=== PATIENT | female | born 1955 | race Caucasian/White ===

== ENCOUNTER 2022-11-04 07:32 | Observation (INO) ==
--- NOTE | 2022-09-28 15:36 | PAT Medication Instructions ---
Medication Instructions Date of Service September 28, 2022 Home Medications albuterol sulfate 90 mcg/actuation breath activated powder inhaler,sensor (Proair Digihaler) 2 inh inhalation Q4H PRN Shortness Of Breath budesonide 32 mcg/actuation nasal spray 1 spray intranasal DAILY PRN Nasal Congestion 23] clindamycin phosphate 1 % topical swab (Clindacin P) 1 applic topical HS fluticasone propionate 110 mcg/actuation HFA aerosol inhaler (Flovent HFA) 2 puff inhalation HS meloxicam 15 mg tablet 15 mg PO DAILY PRN Pain multivitamin 1 tab PO QDL omega-3 fatty acids [Fish Oil Concentrate] 1 tab PO DAILY turmeric root extract 500 mg capsule 500 mg PO QDL loratadine 10 mg tablet (Claritin) 10 mg PO DAILY PRN Allergy Symptoms cholecalciferol (vitamin D3) 25 mcg (1,000 unit) tablet (Vitamin D3) 25 mcg PO QDL glucosamine sulfate 2KCl 500 mg-msm 166.6 mg-chondroitin 400 mg tablet 1 tab PO QDL ASK your surgeon for instructions meloxicam 15 mg tablet 15 mg PO DAILY PRN Pain STOP taking 2 weeks before surgery omega-3 fatty acids [Fish Oil Concentrate] 1 tab PO DAILY turmeric root extract 500 mg capsule 500 mg PO QDL glucosamine sulfate 2KCl 500 mg-msm 166.6 mg-chondroitin 400 mg tablet 1 tab PO QDL STOP taking 24 hours before surgery clindamycin phosphate 1 % topical swab (Clindacin P) 1 applic topical HS DO NOT take the morning of surgery multivitamin 1 tab PO QDL loratadine 10 mg tablet (Claritin) 10 mg PO DAILY PRN Allergy Symptoms cholecalciferol (vitamin D3) 25 mcg (1,000 unit) tablet (Vitamin D3) 25 mcg PO QDL Take morning of surgery With a small sip of water, OTHERWISE NOTHING TO EAT OR DRINK AFTER MIDNIGHT: albuterol sulfate 90 mcg/actuation breath activated powder inhaler,sensor (Proair Digihaler) 2 inh inhalation Q4H PRN Shortness Of Breath (use if needed; please bring with you to hospital day of surgery if possible) budesonide 32 mcg/actuation nasal spray 1 spray intranasal DAILY PRN Nasal Congestion (if needed) Take evening before surgery fluticasone propionate 110 mcg/actuation HFA aerosol inhaler (Flovent HFA) 2 puff inhalation HS loratadine 10 mg tablet (Claritin) 10 mg PO DAILY PRN Allergy Symptoms (if needed) budesonide 32 mcg/actuation nasal spray 1 spray intranasal DAILY PRN Nasal Congestion (if needed) Other Notes If you have any questions please call us at [phone] or [phone] or [phone] or [phone]
--- NOTE | 2022-10-12 10:42 | Anesthesiology Consultation ---
Date of Service October 12, 2022 Assessment & Plan (1) Encounter for pre-operative examination: - left arm restriction. - Outpatient joint assessment: Patient is currently scheduled for inpatient pathway. If re-evaluated and patient/surgeon requests outpatient pathway, patient is acceptable candidate for outpatient joint program from anesthesia standpoint pending surgeon's office assessment of pt motivation/support/completion of same day joint program preop requirements. Chart Review Chart Review: Acceptable Risk for Surgery and Patient seen in Pre Admission Testing Teaching & Discussion Pre-Anesthesia Teaching/Discussion Notes: Instructed NPO after midnight before surgery, except medications with 15 cc of water. Medication instructions provided according to the PAT guidelines. History Surgery Operation Date: 11/04/22 10:40 Proposed Procedures p Right Total Knee Arthroplasty - Daniel Alberto, Height/Weight Height: 5 ft 4 in Weight: 89 kg Allergies Allergy/AdvReac Type Severity Reaction Status Date / Time COVID-19 (SARS-CoV-2) Allergy Severe anaphylaxis: Verified 10/12/22 10:35 vaccine, lorraine mouth/lip/throat swelling naproxen Allergy Severe throat Verified 10/12/22 10:43 swelling thimerosal Allergy Severe "caused Verified 09/28/22 14:22 holes in eye" nickel Allergy Intermediate severe rash Verified 09/28/22 14:35 latex Allergy Mild RASH Verified 09/28/22 14:19 Penicillins Allergy Mild HIVES Verified 09/28/22 14:19 Medications Home Medications Medication Instructions Recorded Confirmed Last Taken albuterol sulfate 90 mcg/actuation 2 inh inhalation Q4H PRN Shortness 07/14/20 09/28/22 Unknown breath activated powder Of Breath inhaler,sensor (Proair Digihaler) budesonide 32 mcg/actuation nasal 1 spray intranasal DAILY PRN Nasal 07/14/20 09/28/22 Unknown spray Congestion clindamycin phosphate 1 % topical 1 applic topical HS 07/14/20 09/28/22 Unknown swab (Clindacin P) fluticasone propionate 110 2 puff inhalation HS 07/14/20 09/28/22 Unknown mcg/actuation HFA aerosol inhaler (Flovent HFA) meloxicam 15 mg tablet 15 mg PO DAILY PRN Pain 07/14/20 09/28/22 Unknown multivitamin 1 tab PO QDL 07/14/20 09/28/22 Unknown omega-3 fatty acids [Fish Oil 1 tab PO DAILY 07/14/20 09/28/22 Unknown Concentrate] turmeric root extract 500 mg 500 mg PO QDL 07/14/20 09/28/22 Unknown capsule loratadine 10 mg tablet (Claritin) 10 mg PO DAILY PRN Allergy Symptoms 07/24/20 09/28/22 Unknown cholecalciferol (vitamin D3) 25 25 mcg PO QDL 09/28/22 09/28/22 Unknown mcg (1,000 unit) tablet (Vitamin D3) glucosamine sulfate 2KCl 500 1 tab PO QDL 09/28/22 09/28/22 Unknown mg-msm 166.6 mg-chondroitin 400 mg tablet ibuprofen 200 mg tablet 200 mg PO Q6H PRN Pain 10/12/22 10/12/22 Unknown Additional Notes: Pt was instructed to contact surgeon's office regarding ibuprofen, she verbalized understanding and agreement, denied questions, concerns or additional medications/supplements. Past Medical History Medical History (Updated 10/12/22 @ 10:40 by Caityln Higgins PA-C) Asthma inhaler daily/prn-last rescue inhaler use 7 months ago GERD (gastroesophageal reflux disease) rare, stable per pt History of breast cancer 2000--left--left mastectomy/chemo/aromatase x 5 yrs--left arm History of COVID-19 02/2022--mild symptoms, no symptoms now Limb alert care status left arm Patient denies h/o stroke, seizures, heart attack, heart failure, DM, HTN, blood clots or blood transfusions. Exercise / Class Metabolic Activity II 4-5 Yardwork/Stairs/Walk up hill (denies shortness of breath or chest discomfort with 1 FOS) Past Family History Family History (Updated 09/28/22 @ 14:38 by Angelic Heredia RN) Mother Alzheimer disease Breast cancer Grandmother (Maternal) Alzheimer disease Father Parkinson disease Stroke Brother Schizophrenia Other No family history of adverse response to anesthesia Past Surgical History Surgical History (Updated 09/28/22 @ 14:37 by Angelic Heredia RN) H/O mastectomy left mastectomy with lymph node removal History of bilateral cataract extraction History of colonoscopy History of dilatation and curettage x2 History of left breast biopsy malignant History of oophorectomy bilateral History of right breast biopsy benign Past Anesthesia History No Hx of Anesthesia Complications and No Family Hx of Anesthesia Complications History of PONV No Hx of PONV and No Hx of Motion Sickness Social History Smoking Status: Never smoker Do You Dip or Chew Tobacco: No Hx Alcohol Use: Yes alcohol intake frequency: holidays/special occasions only Hx Substance Use: No substance use type: does not use Review of Systems Occasional snoring, denies witnessed apneas. Patient denies chest pain, shortness of breath, dyspnea on exertion, fever, chills, cough, wheezing, or palpitations. Physical Exam Vital Signs Vitals BP 124/87 P 80 TEMP 98.2 SP02 96% on RA RESP 18 Physical Patient resting comfortably in chair in NAD, alert and oriented, responding appropriately throughout visit Full cervical extension range of motion without pain TMD 3.5 finger breadths Mallampati Score 3 Dentition: multiple crowns, denies chipped or loose teeth, caps, implants or bridges Lungs: normal respiratory effort. Good air movement, clear throughout to auscultation, no adventitious breath sounds Cardiac: regular rate and rhythm, no murmurs noted Carotid arteries: negative bruit bilat Lab Results Anesthesia Preop Results Results Anesthesia Widget: WBC 7.70 K/ul (4.8-10.8) 10/12/22 Hgb 13.9 g/dl (12.0-16.0) 10/12/22 Hct 40.6 % (37.0-47.0) 10/12/22 Plt 268 K/uL (130-400) 10/12/22 Na 137 mmol/L (136-145) 10/12/22 K 4.1 mmol/L (3.5-5.1) 10/12/22 Cl 106 mmol/L (98-107) 10/12/22 CO2 24 mmol/L (21-32) 10/12/22 BUN 21 mg/dl (6-23) 10/12/22 Creat 0.64 mg/dl (0.6-1.2) 10/12/22 Glucose Level 88 mg/dl (70-99(Fasting)) 10/12/22 PT 10.9 Seconds (9.0-12.0) 10/12/22 PTT 26.2 Seconds (21.0-31.0) 10/12/22 INR 1.0 (0.9-1.1) 10/12/22 Blood Type A Positive 10/12/22 Antibody Screen NEGATIVE 10/12/22 Testing Electrocardiogram Date: 10/12/22 NSR, rate 67 bpm Chest X-Ray Date: 10/12/22 No acute process
--- NOTE | 2022-11-03 06:57 | History & Physical Report ---
Date of Service November 03, 2022 Assessment & Plan (1) Osteoarthritis of right knee: We will proceed with a right total knee arthroplasty. Postoperatively she will be started on aspirin for DVT prophylaxis and kept overnight in the hospital for postop medical management. She plans to use energy physical therapy upon discharge. History of Present Illness Chief Complaint: Osteoarthritis of the right knee. Primary Care Provider: Angélica Johnston MD Zee is a pleasant 67-year-old female, who has been dealing with chronic increasing right knee pain. She has seen several orthopedic doctors over the past year or so. She has had multiple injections of her knee. She has done some therapy. All of her pain is located medially. It is to the point where she cannot go walking with her anymore. X-rays and clinical examination been diagnostic for advanced osteoarthritis of the right knee. After failing conservative treatment, she has elected proceed with a right total knee arthroplasty. . Allergies Allergy/AdvReac Type Severity Reaction Status Date / Time COVID-19 (SARS-CoV-2) Allergy Severe anaphylaxis: Verified 10/12/22 10:35 vaccine, lorraine mouth/lip/throat swelling naproxen Allergy Severe throat Verified 10/12/22 10:43 swelling thimerosal Allergy Severe "caused Verified 09/28/22 14:22 holes in eye" nickel Allergy Intermediate severe rash Verified 09/28/22 14:35 latex Allergy Mild RASH Verified 09/28/22 14:19 Penicillins Allergy Mild HIVES Verified 09/28/22 14:19 Home Medications Medication Instructions Recorded Confirmed Type albuterol sulfate 90 mcg/actuation 2 inh inhalation Q4H PRN Shortness 07/14/20 09/28/22 History breath activated powder Of Breath inhaler,sensor (Proair Digihaler) budesonide 32 mcg/actuation nasal 1 spray intranasal DAILY PRN Nasal 07/14/20 09/28/22 History spray Congestion clindamycin phosphate 1 % topical 1 applic topical HS 07/14/20 09/28/22 History swab (Clindacin P) fluticasone propionate 110 2 puff inhalation HS 07/14/20 09/28/22 History mcg/actuation HFA aerosol inhaler (Flovent HFA) meloxicam 15 mg tablet 15 mg PO DAILY PRN Pain 07/14/20 09/28/22 History multivitamin 1 tab PO QDL 07/14/20 09/28/22 History omega-3 fatty acids [Fish Oil 1 tab PO DAILY 07/14/20 09/28/22 History Concentrate] turmeric root extract 500 mg 500 mg PO QDL 07/14/20 09/28/22 History capsule loratadine 10 mg tablet (Claritin) 10 mg PO DAILY PRN Allergy Symptoms 07/24/20 09/28/22 History cholecalciferol (vitamin D3) 25 25 mcg PO QDL 09/28/22 09/28/22 History mcg (1,000 unit) tablet (Vitamin D3) glucosamine sulfate 2KCl 500 1 tab PO QDL 09/28/22 09/28/22 History mg-msm 166.6 mg-chondroitin 400 mg tablet ibuprofen 200 mg tablet 200 mg PO Q6H PRN Pain 10/12/22 10/12/22 History Past Med/Surg History Medical History Asthma inhaler daily/prn-last rescue inhaler use 7 months ago GERD (gastroesophageal reflux disease) rare, stable per pt History of breast cancer 2000--left--left mastectomy/chemo/aromatase x 5 yrs--left arm History of COVID-19 02/2022--mild symptoms, no symptoms now Limb alert care status left arm Surgical History H/O mastectomy left mastectomy with lymph node removal History of bilateral cataract extraction History of colonoscopy History of dilatation and curettage x2 History of left breast biopsy malignant History of oophorectomy bilateral History of right breast biopsy benign Family History Mother Alzheimer disease Breast cancer Grandmother (Maternal) Alzheimer disease Father Parkinson disease Stroke Brother Schizophrenia Other No family history of adverse response to anesthesia Social History Smoking Status: Never smoker Second Hand Exposure: No; Do You Dip or Chew Tobacco: No; Hx Alcohol Use: Yes Hx Substance Use: No Preferred Language: Mongolian Communication Ability: Effective Cigar Patcher Required: No Beliefs That Will Affect Care: None marital status: Current Living Situation: Spouse current occupational status: retired Feels Safe at Home: Yes Assistive Devices: None Review of Systems All systems reviewed & are unremarkable except as noted in HPI & below. Physical Exam On physical examination the right knee, she has a slight varus deformity. She has tenderness palpation over the distal medial femoral condyle and over the medial joint line.. Constitutional WD/WN, vitals as above Eyes PERRL, conjunctivae normal, anicteric sclerae ENMT external ear and nose normal, oropharynx normal Neck trachea midline, no thyromegaly Respiratory normal respiratory effort, lungs clear to auscultation Cardiovascular RRR, no murmur, no edema Gastrointestinal (Abdomen) normal bowel sounds, soft, nontender, no hepatosplenomegaly Skin no rashes, warm and dry Psychiatric A+Ox3, euthymic affect Results & Data Results & Data Laboratory Results . Diagnostic Findings X-rays of the right knee show advanced osteoarthritis with joint space narrowing, osteophyte formation, and [id number] articulation. PG Care Time/CCT Total # of Minutes Spent Total Time Spent with Patient: Total time spent is greater than 50% in coordination of care (as documented) at patient's floor/unit and/or counseling patient: Coding Level of Care Code None Diagnoses Osteoarthritis of right knee M17.11
[~2022-11-04 07:32] MED LIST: ACETAMINOPHEN 500 MG TAB PO SCH; ALLERGY Noted to ORDERED Medication SCH; BUPIVACAINE 0.5 % 5 MG/1 ML PF 10ML VIAL ONE; FAMOTIDINE 20 MG TAB PO SCH; GABAPENTIN 300 MG CAP PO SCH; LR 500ML BOLUS, THEN 15ML/HR IV SCH; LR 60ML/HR IV SCH; ROPIVACAINE 0.5% 5 MG/ML 30 ML VIAL ONE; TRANEXAMIC ACID 1,000 MG **IV Intra-op IV SCH; TRANEXAMIC ACID 1,000 MG **IV Pre-op IV SCH; dexAMETHasone 4 MG TAB PO SCH
[2022-11-04] MEDS ORDERED: fentaNYL citrate PF 100 MCG/2 ML VIAL ONE (07:53)
[2022-11-04] MEDS ORDERED: MIDAZOLAM HCL 1 MG/ML 2ML VIAL ONE (07:54)
--- NOTE | 2022-11-04 08:03 | History & Physical Bridge Note ---
Date of Service November 04, 2022 History & Physical Bridge Note I have examined the patient, reviewed the History & Physical and in the interval since the performance of the History & Physical I have noted the following changes of clinical significance: no changes noted
[2022-11-04] MEDS ORDERED: ceFAZolin 2000MG 2,000 MG/15 ML SYR IV ONE (08:09)
[2022-11-04] MEDS ORDERED: ceFAZolin 2,000 MG/15 ML IV PUSH IV ONE (08:11)
[2022-11-04] MEDS ORDERED: ONDANSETRON INJ 2 MG/ML 2 ML VIAL IV PRN ×2 (08:38→13:23)
[2022-11-04] MEDS ORDERED: fentaNYL citrate PF 100 MCG/2 ML VIAL IV PRN (08:38)
[2022-11-04] MEDS ORDERED: ePHEDrine sulfate 50 MG/ML AMP IV PRN (08:38)
[2022-11-04] MEDS ORDERED: ATROPINE SULFATE 0.1 MG/ML 10ML SYR IV PRN (08:38)
[2022-11-04] MEDS ORDERED: ONDANSETRON INJ 2 MG/ML 2 ML VIAL ONE (09:09)
[2022-11-04] MEDS ORDERED: PROPOFOL IV EMULSION 10 MG/ML 20 ML VIAL IV ONE ×2 (09:09→09:58)
--- NOTE | 2022-11-04 10:14 | Operative Report ---
PG Post Operative Report Pre & Post Diagnosis Operation Date: 11/04/22 09:00 Pre-Op Diagnosis: Right Knee Degenerative Joint Disease Post-Op Diagnosis: Right Knee Degenerative Joint Disease I identified the patient and participated in the time-out.: Yes Procedure Operation Date: 11/04/22 09:00 Actual Procedures p Right Total Knee Arthroplasty, Cemented(Right) - Daniel Alberto DO Surgeon Daniel Alberto DO Gear Setter Daniel Garcia PA-C Estimated Blood Loss 30 Findings Consistent with Post-Op Diagnosis Specimens Right femoral tibial bone Description of Procedure Implants used: I used a Abelino Persona total knee arthroplasty system with a size 7 PS titanium femur, E tibia, 31 oval patella, and a size 14 CPS polyethylene bearing. All components were cemented in place with Biomet cement. Zee arrived [facility] for the above procedure. She was seen in the preoperative holding area and the operative extremity was identified and signed. She was given a preoperative antibiotic, TXA, a spinal anesthetic and an adductor nerve block. She was taken back to the operating room and laid on the table in supine position. She was given basic sedation. The operative knee was then prepped and draped in sterile fashion. A timeout was done, and the patient and the operative extremity was properly identified. A midline incision was made directly over the patella. Dissection was taken down to the extensor mechanism. A midvastus arthrotomy was used. The medial retinaculum was released and the fat pad was mostly excised. The knee was flexed and the ACL, PCL, and meniscus were removed. A drill was sent down the center of the femoral canal followed by an intramedullary ethan. Off that ethan a distal femoral cutting block was placed. 9 mm was resected off the distal femur at 5 of valgus. A posterior referencing AP sizing guide was then placed on the distal femur. The femur measured to be a size 7. 2 drill holes were placed in 3 of external rotation. A 4-in-1 cutting block was then impacted into place. Anterior, posterior, and chamfer cuts were then made. The proximal tibia was then exposed. An external tibial alignment guide was placed. A tibial cut guide was then anchored in place and the proximal tibia was then resected. The posterior aspect of the knee was then ope triston up and any additional meniscus fragments and osteophytes were removed. The tibia measured to be a size E. The tibial plate was then placed in the appropriate rotation and the tibia was drilled and punched. Trial components were then placed. I used a size 14 CPS polyethylene insert. The knee was brought through a full range of motion and felt to be stable. The peg holes for the femoral component were then drilled. The patella was then everted and 9 mm was resected off the posterior aspect of the patella. The patella measured to be a size 31 oval. 3 peg holes were then drilled. A trial patella was placed. The knee was once again brought through a full range of motion and felt to be stable. Trial components were then removed. The surrounding soft tissues were injected with 100 cc of an orthopedic pain control cocktail. All components were then cemented into place with Biomet cement. The final polyethylene insert was then snapped into place. Once cement was dry the tourniquet was deflated. Hemostasis was obtained. A dilute betadyne lavage was then done for 3 minutes. The joint was then irrigated with normal saline solution. The midvastus arthrotomy was then closed with #1 Vicryl suture. The skin was closed with 2-0 Vicryl, 3-0V lock suture, and lucia. A soft compressive dressing was placed. She was then transferred to a hospital bed and taken to the postanesthesia care unit in stable condition. She tolerated the procedure well. Daniel Garcia PA-C, was present for the entire procedure. He was critical for patient positioning, prepping, draping, retraction exposure, wound closure and application of sterile dressing. I attest to the content of the Intraoperative Record and any orders documented therein. Any exceptions are noted below.
--- NOTE | 2022-11-04 11:08 | XRay Report ---
XR knee RT 1 or 2V routine HISTORY: 67 years-old Female Surgical Post Op right knee arthroplasty COMPARISON: 09/27/2021 TECHNIQUE: 2 views of the right knee FINDINGS: Total joint arthroplasty with patellar resurfacing. Anterior midline skin lucia with expected posto perative soft tissue swelling and deep tissue air. No acute fracture, dislocation or unexpected opaqu e foreign body. IMPRESSION: Total joint arthroplasty with expected postoperative changes. ACT 112: Negative or not required by law. The above report was generated using voice recognition software. It may contain grammatical, syntax o r spelling errors. Electronically signed by: Kraig Osorio M.D. 11/04/2022 11:07 AM
--- NOTE | 2022-11-04 13:14 | Anesthesiology Progress Note ---
Date of Service November 04, 2022 Anesthesia Post Procedure Vital Signs Vital Signs: Temp Pulse Pulse Resp BP Pulse Ox O2 Del Method 11/04/22 13:00 97.7 F 65 16 103/67 97 Nasal Cannula 11/04/22 12:45 69 16 104/67 95 Nasal Cannula 11/04/22 12:30 73 19 114/66 93 Nasal Cannula 11/04/22 12:15 66 16 111/60 95 Nasal Cannula 11/04/22 12:00 64 16 105/73 97 Nasal Cannula 11/04/22 11:55 97.7 F 71 14 118/80 95 Nasal Cannula 11/04/22 11:45 73 15 111/70 96 Nasal Cannula 11/04/22 11:35 64 16 118/71 96 Nasal Cannula 11/04/22 11:25 62 17 105/76 95 Nasal Cannula 11/04/22 11:15 57 L 12 98/69 L 96 Nasal Cannula 11/04/22 11:05 79 18 106/74 95 Nasal Cannula 11/04/22 10:55 75 16 109/68 96 Nasal Cannula 11/04/22 10:45 70 14 112/69 96 Nasal Cannula 11/04/22 10:35 97.3 F L 69 16 120/71 95 Nasal Cannula 11/04/22 08:13 98.2 F 87 18 94 Room Air O2 Flow Rate 11/04/22 13:00 2 11/04/22 12:45 2 11/04/22 12:30 2 11/04/22 12:15 2 11/04/22 12:00 2 11/04/22 11:55 2 11/04/22 11:45 2 11/04/22 11:35 2 11/04/22 11:25 2 11/04/22 11:15 3 11/04/22 11:05 3 11/04/22 10:55 3 11/04/22 10:45 3 11/04/22 10:35 3 11/04/22 08:13 Transfer of Care Handoff Completed per policy Notes Mental Status: alert / awake / arousable and participated in evaluation Patient Amnestic to Procedure: Yes Nausea / Vomiting: adequately controlled Pain: adequately controlled Airway Patency, RR, SpO2: stable & adequate BP & HR: stable & adequate Hydration State: stable & adequate Neuraxial Anesthesia: was administered and sensory block is resolving Anesthetic Complications: no major complications apparent and Pt Satisfied with anesthetic care
[2022-11-04] MEDS ORDERED: NALOXONE HCL 0.4 MG/1 ML VIAL/CARP IV PRN (13:23)
[2022-11-04] MEDS ORDERED: bisacodyL 10 MG SUPP PR PRN (13:23)
[2022-11-04] MEDS ORDERED: HYDROmorphone INJ 0.5 MG/0.5 ML SYR IV PRN (13:23)
[2022-11-04] MEDS ORDERED: METOCLOPRAMIDE HCL INJ 5 MG/ML 2 ML VIAL IV PRN (13:23)
[2022-11-04] MEDS ORDERED: MAGNESIUM HYDROXIDE SUSP 30 ML UDC PO PRN (13:23)
[2022-11-04] MEDS ORDERED: SODIUM CHLORIDE 0.9% 1000ML 1,000 ML IV SCH (13:23)
[2022-11-04] MEDS ORDERED: ALBUTEROL HFA 8 GM INHALER INH PRN (13:35)
[2022-11-04] MEDS ORDERED: FLUTICASONE PROPIONATE NA SPR 16 GM BTL PRN (13:38)
[2022-11-04] MEDS: ACETAMINOPHEN 500 MG TAB PO SCH ×2 (13:58→22:01)
[2022-11-04] MEDS: ALLERGY Noted to ORDERED Medication SCH ×2 (14:19→14:20)
[2022-11-04] MEDS: ceFAZolin 2000MG 2,000 MG/15 ML SYR IV SCH (17:27)
[2022-11-04] MEDS: oxyCODONE HCL IR 5 MG TAB (IMMEDIATE RELEASE) PO PRN (20:18)
[2022-11-04] MEDS: DOCUSATE SODIUM 100 MG CAP PO SCH (20:19)
[2022-11-04] MEDS: ASPIRIN 81 MG ECTAB PO SCH (20:20)
[2022-11-04] MEDS ORDERED: FLUTICASONE FUROATE 100MCG 14 PUFFS/INHALER INH SCH (21:00)
[2022-11-04] MEDS ORDERED: SENNA 8.6 MG TAB PO SCH (21:00)
[2022-11-05] MEDS: ceFAZolin 2000MG 2,000 MG/15 ML SYR IV SCH (01:12)
[2022-11-05] MEDS: oxyCODONE HCL IR 5 MG TAB (IMMEDIATE RELEASE) PO PRN ×2 (03:52→09:06)
[2022-11-05] MEDS: ACETAMINOPHEN 500 MG TAB PO SCH (05:12)
[2022-11-05] MEDS ORDERED: ORTHO JOINT MIX INFIL SCH (06:00)
[2022-11-05] MEDS ORDERED: dexAMETHasone 4 MG TAB PO SCH (08:00)
--- NOTE | 2022-11-05 08:21 | Discharge Summary ---
Date of Service November 05, 2022 Admission HPI (Per Admitting) Zee is a pleasant 67-year-old female, who has been dealing with chronic increasing right knee pain. She has seen several orthopedic doctors over the past year or so. She has had multiple injections of her knee. She has done some therapy. All of her pain is located medially. It is to the point where she cannot go walking with her anymore. X-rays and clinical examination been diagnostic for advanced osteoarthritis of the right knee. After failing conservative treatment, she has elected proceed with a right total knee arthroplasty. . Admission Exam (Per Admitting) On physical examination the right knee, she has a slight varus deformity. She has tenderness palpation over the distal medial femoral condyle and over the medial joint line.. Principal Diagnosis Same as "Discharge Diagnosis" noted below under Discharge Instructions. Discharge Exam On physical examination of the right knee, the dressing is clean and dry. Her leg is out full extension. She has active dorsiflexion and plantarflexion of her right ankle. Sensation is intact throughout.. Discharge Data Procedures Performed Operation Date: 11/04/22 09:00 Actual Procedures p Right Total Knee Arthroplasty, Cemented(Right) - Daniel Alberto DO Ordered Studies 11/04/22 05:00 US - OR guided needle placemen Routine Hospital Course (1) Status post right knee replacement: On November 04, 2022 Zee arrived at [facility] and underwent a knee replacement without complication. She had a spinal anesthetic. Postoperatively she was started on aspirin for DVT prophylaxis and transferred to the general orthopedic floors. Her hospital course was uneventful. On postop day #1, her vital signs were stable and her pain was well controlled. She was able to participate well with physical therapy doing ambulation and range of motion exercises. She was then discharged home. She will follow-up with orthopedics in 2 weeks. PG Care Time/CCT Total # of Minutes Spent Total Time Spent with Patient: Total time spent is greater than 50% in coordination of care (as documented) at patient's floor/unit and/or counseling patient: Discharge Plan Discharge Items Patient Disposition: Home - Home Health Services Reason For Visit: Right Knee Degenerative Joint Disease Discharge Diagnosis: Right knee replacement Activity: Per Instructions section Non-emergency contact: Surgeon Call non-emergency contact if: your wound has increased redness and your wound has increased drainage Follow-up/Referrals: Angélica Johnston MD [Primary Care Provider] - Diet: Regular Addtl Attending Provider Instructions: Activity and Therapy Recommendations: * If you are using [facility] then therapy will be provided at your home until they feel you have accomplished all of your goals. * If you are using [facility] then Physical Therapy will be provided until they feel you are ready to start Outpatient Physical Therapy. * If you are not using home therapy then Outpatient Physical Therapy should start about 3-5 days from your day of surgery. Therapy will last about 6-10 weeks * It is important not to put a pillow under your knee when you are relaxing or sleeping. It is just as important to make sure you are getting your knee perfectly straight as it is to regain your knee bend. * You were shown a series of exercises in the hospital. Do these exercises three times each day including the exercises you were shown in physical therapy. * Get up and walk several times each day. For the first four weeks, try not to stand or walk for more than one hour at a time. If you do stand or walk for more than one hour, you will not hurt anything, but your leg will likely swell. * As you feel comfortable, you may change from the walker or crutches to a cane and then to independent walking. Medications: * Narcotic You will likely be sent home from the hospital with a prescription for the narcotic pain medication that worked best throughout your stay. * Aspirin Most patients will be required to take Aspirin 81mg twice a day for 6 weeks after surgery. This is obtained [id number] and a prescription is not necessary. * Other medications may be prescribed for specific circumstances. If you have any questions, please call the office at . * Resume previous home medications unless otherwise instructed TEDs/Elastic Stockings: The white elastic stockings help limit swelling and prevent blood clots from forming in your legs.~ The more you wear them, the more they work. Wear them for six weeks. Dressing Care: The dressing can be changed after physical therapy on postop day #1. Daily dry dressing changes for a few days, especially if the incision is still draining some. If the incision is not draining then you may leave the lucia open to air. If there is a little bit of drainage or if the lucia are getting stuck on your clothing then cover the incision with a dry dressing. The lucia will be removed at your 2 week follow-up appointment. Showering: You may shower 5 days from the day of surgery as long as the incision is no longer draining. You may shower with the lucia exposed. Let soapy water run over the lucia and pat them dry. Do not scrub or soak the incision. Things To Watch For: * Drainage from the incision site that occurs more than one week after your surgery. * Increased redness at the incision site. * Fever above 102 degrees Fahrenheit. * Unusual chest pain or shortness of breath. * Call [facility] at with any of the above problems Follow-Up Visit: Follow-up with Dr. Alberto's PA (Daniel Garcia) 2-3 weeks after your day of surgery. He will remove your lucia and answer any questions. If you have any additional questions or concerns, Dr Alberto is usually in the office at the same time and will be available An appointment was probably scheduled when you signed-up for surgery in the office. If you have any questions call Office Instructions: More detailed instructions as well as Frequently Asked Questions were provided in a folder by our office when you signed-up for surgery. Please review these instructions when you get home. If you have any further questions or concerns, please feel free to call the office at [phone] Pending Studies at Discharge: No Stand-Alone Forms: My [facility], Smoking Cessation Medications and DC Order Prescriptions: New oxycodone-acetaminophen [Percocet] 5-325 mg tablet 1 tab PO Q6H PRN (Reason: pain) Qty: 30 0RF aspirin 81 mg Tablet,Delayed Release (Dr/Ec) 81 mg PO BID 42 Days Qty: 0 0RF Continued omega-3 fatty acids 1 tab PO DAILY clindamycin phosphate [Clindacin P] 1 % swab 1 applic topical HS Flovent HFA 110 mcg/actuation HFA aerosol inhaler 2 puff inhalation HS meloxicam 15 mg tablet 15 mg PO DAILY PRN (Reason: Pain) multivitamin Tablet 1 tab PO QDL Proair Digihaler 90 mcg/actuation aero powdr breath act w/sensor 2 inh inhalation Q4H PRN (Reason: Shortness Of Breath) budesonide 32 mcg/actuation spray,non-aerosol 1 spray intranasal DAILY PRN (Reason: Nasal Congestion) Rx Instructions: administer into each nostril turmeric root extract 500 mg capsule 500 mg PO QDL loratadine [Claritin] 10 mg tablet 10 mg PO DAILY PRN (Reason: Allergy Symptoms) cholecalciferol (vitamin D3) [Vitamin D3] 25 mcg (1,000 unit) Tablet 25 mcg PO QDL glucosamine [id number] 500-166.6-400 mg Tablet 1 tab PO QDL ibuprofen 200 mg Tablet 200 mg PO Q6H PRN (Reason: Pain) Admission Data Admit Date/Time: 11/04/22 10:40 Attending Provider: Daniel Alberto Admit Provider: Daniel Alberto Primary Care Provider: Angélica Johnston
--- NOTE | 2022-11-05 08:21 | Orthopedic Progress Note ---
Date of Service November 05, 2022 Assessment & Plan (1) Status post right knee replacement: Overall she is doing very well. She is not having much pain in the right knee. She will be seen by physical therapy today for ambulation and range of motion exercises. The nursing staff can change her dressing after physical therapy. She is on aspirin for DVT prophylaxis. She can be discharged home later today. She will follow-up with orthopedics in 2 weeks. Kinjal Koch was seen and examined at bedside this morning. Overall she is doing very well. She is not having much pain in the right knee. She has been up and ambulating to the bathroom. She has no complaints.. Review of Systems All systems reviewed & are unremarkable except as noted in HPI & below. Physical Exam On physical examination of the right knee, the dressing is clean and dry. Her leg is out full extension. She has active dorsiflexion and plantarflexion of her right ankle. Sensation is intact throughout.. Results & Data Results & Data Laboratory Results . Diagnostic Findings Postoperative x-rays of the right knee show the prosthesis to be in anatomic alignment without any evidence of fracture, dyscrasia, or loosening.. PG Care Time/CCT Total # of Minutes Spent Total Time Spent with Patient: Total time spent is greater than 50% in coordination of care (as documented) at patient's floor/unit and/or counseling patient: Coding Level of Care Code 01826 Post Operative Follow-Up Diagnoses Status post right knee replacement Z96.651
[2022-11-05] MEDS ORDERED: MULTIVITAMIN TAB PO SCH (09:00)
[2022-11-05] MEDS: ASPIRIN 81 MG ECTAB PO SCH (09:07)
[2022-11-05] MEDS: DOCUSATE SODIUM 100 MG CAP PO SCH (09:08)
== END 2022-11-05 11:50 | disposition home health service (06) ==
LOC: PACUINP 07:32 → ASU 07:32 → 3W 13:19